=== PATIENT | male | born 1980 | race Caucasian/White ===

== ENCOUNTER 2022-04-03 05:57 | Observation (INO) ==
[2022-04-03] MEDS ORDERED: ASPIRIN 325 MG TABLET PO STA (06:07)
[2022-04-03 06:28] LABS: Basophils % 0.5 % (0.0-0.8); Eosinophils # 0.1 10*3/uL (0.0-0.87); Eosinophils % 2.8 % (0.00-10.9); Hematocrit 49.3 VOL% (42.0-52.0); Hemoglobin 16.4 GM/DL (14.0-18.0); Immature Granulocytes % 0.2 %; Immature Granulocytes Absolute 0.01 #; Lymphocytes # 1.2 10*3/uL (1.4-4.0); Lymphocytes % 27.5 % (21.2-54.2); Mean Corpuscular HGB Conc 33.3 GM/DL (32-36); Mean Corpuscular Volume 86.8 FL (87-102); Mean Platelet Volume 11.4 FL (9.6-12.0); Monocytes # 0.3 10*3/uL (0.11-0.8); Monocytes % 7.4 % (1.7-12.7); Neutrophils % 61.6 % (38.7-73.9); Platelet Count 217 T/CUMM (130-400); Red Blood Count 5.68 MC/CUMM (3.8-5.5); White Blood Count 4.3 T/CUMM (4-12)
[2022-04-03 06:43] LABS: PT Patient Result 11.4 SECS (10.1-12.1); Partial Thromboplastin Time 29.3 SECS (23.7-32.9)
[2022-04-03 06:46] LABS: Albumin 4.1 G/DL (3.4-5.0); Bilirubin,Total 0.8 MG/DL (0.20-1.00); Calcium 9.7 MG/DL (8.5-10.1); Osmolality,Calculated 274.7 MOS/KG (273-304); Potassium 4.4 MMOL/L (3.5-5.1); Total Protein 7.4 G/DL (6.4-8.2)
[2022-04-03] MEDS ORDERED: ONDANSETRON 4 MG/2 ML VIAL IV STA (06:57)
[2022-04-03] MEDS ORDERED: MORPHINE 2 MG/1 ML SYRINGE IV STA (06:57)
[2022-04-03] MEDS ORDERED: NITROGLYCERIN 2% OINT 1 INCH/GM PACK TOP STA (06:58)
[2022-04-03] MEDS ORDERED: ALUM/MAG/SIMETH/LIDO VISC 1:1 30 ML BOTTLE PO STA (06:58)
[2022-04-03 07:44] LABS: Bilirubin,Urine Negative (Negative); Blood, Urine Negative (Negative); Glucose,Urine (UA) Negative (Negative); Ketones,Urine Negative (Negative); Mucus,Urine Occasional /LPF (Occasional); Nitrite,Urine Negative (Negative); Protein,Urine Negative (Negative); RBC,Urine 1 /HPF (0-4); Urine Appearance Clear (Clear); Urine Color Yellow (Yellow); Urine Specific Gravity 1.015 (1.001-1.035); Urine Urobilinogen 0.2 eU/dL (<2.0)
[2022-04-03 07:51] LABS: Barbiturates Screen,Urine Negative (Negative); Benzodiazepines Screen,Urine Negative (Negative); Cannabinoid Screen,Urine Negative (Negative); Opiate Screen,Urine Positive (Negative); Phencyclidine Screen,Urine Negative (Negative)
[2022-04-03] MEDS ORDERED: MAGNESIUM SULF RIDER 2 GM/50 ML PREMIX IV PRN (08:39)
[2022-04-03] MEDS ORDERED: POTASSIUM CHLORIDE RIDER 10 MEQ/100 ML PREMIX IV PRN (08:39)
[2022-04-03] MEDS ORDERED: SODIUM CHLORIDE 0.9% 1,000 ML IV SCH (09:00)
[2022-04-03] MEDS ORDERED: diphenhydrAMINE CAP 50 MG CAPSULE PO ONE (09:30)
[2022-04-03] MEDS ORDERED: DIAZEPAM 5 MG TABLET PO ONE (09:30)
[2022-04-03] MEDS ORDERED: diphenhydrAMINE CAP 25 MG CAPSULE ONE (09:41)
[2022-04-03 09:51] LABS: Risk Ratio 2.56
[2022-04-03] MEDS ORDERED: MIDAZOLAM 2 MG/2 ML VIAL ONE (10:48)
[2022-04-03] MEDS ORDERED: fentaNYL 100 MCG/2 ML VIAL ONE (10:48)
[2022-04-03] MEDS ORDERED: VERAPAMIL 5 MG/2 ML VIAL ONE (10:49)
[2022-04-03] MEDS ORDERED: NITROGLYCERIN DRIP 50 MG/250 ML BOTTLE IV ONE (10:49)
[2022-04-03] MEDS ORDERED: ENOXAPARIN 30 MG/0.3 ML SYRINGE ONE (11:58)
[2022-04-03 16:06] VITALS: BP 107/78
[2022-04-04] MEDS ORDERED: ASPIRIN EC 81 MG TABLET PO SCH (09:00)
== END 2022-04-03 18:46 | disposition home or self-care (01) ==
LOC: N.EDINP 05:57 → N.ED 05:57 → N.EDINP 10:46 → N.2W 11:42
PROVIDERS: ADMIT Internal Medicine Cardiovascular Disease; ATTEND Internal Medicine Cardiovascular Disease
PROC: CLCCHCL (ICD-10-PCS; 2022-04-03 10:45)